=== PATIENT | female | born 1945 | race Hispanic/Latino ===

== ENCOUNTER 2016-12-06 12:38 | Outpatient (CLI) | payer MEDICARE ==
--- NOTE | 2016-12-06 13:39 | XRay Report ---
Left knee 4 views including standing AP view. History: Knee pain. Findings: A total knee prosthesis is demonstrated in satisfactory position. There is no evidence of loosening, fracture, or other acute findings. The patella is intact. Impression: No significant findings.
== END 2016-12-06 12:39 | disposition home or self-care (01) ==
LOC: SPVIMAG 12:38
PROVIDERS: ATTEND Orthopaedic Surgery Sports Medicine
DX: M25.562 Pain in left knee (principal); Z96.652 Presence of left artificial knee joint